=== PATIENT | female | born 1940 | race Caucasian/White ===

== ENCOUNTER → 2016-06-24 | Outpatient (REF) | payer MEDICARE, OTHER ==
[2016-06-24 19:21] LABS: ALBUMIN 3.6 GM/DL (3.2-5.2); ALBUMIN/GLOBULIN RATIO 1.13 (1.00-1.93); ALKALINE PHOSPHATASE 82 U/L (45-117); ALT/SGPT 21 U/L (12-78); ANION GAP 11 MEQ/L (8-16); AST/SGOT 19 U/L (15-37); BILIRUBIN,TOTAL 0.5 MG/DL (0.2-1.0); BLOOD UREA NITROGEN 14 MG/DL (7-18); CALCIUM LEVEL 8.9 MG/DL (8.8-10.2); CARBON DIOXIDE LEVEL 28 MEQ/L (21-32); CHLORIDE LEVEL 104 MEQ/L (98-107); CHOLESTEROL LEVEL 214 MG/DL (<200); CREATININE FOR GFR 0.71 MG/DL (0.55-1.02); GLOMERULAR FILTRATION RATE > 60.0 (>39); GLUCOSE, FASTING 101 MG/DL (83-110); POTASSIUM SERUM 4.4 MEQ/L (3.5-5.1); SODIUM LEVEL 143 MEQ/L (136-145); THYROXINE (T4) 7.9 UG/DL (4.5-12.0); TOTAL PROTEIN 6.8 GM/DL (6.4-8.2); TRIGLYCERIDES LEVEL 146 MG/DL (<150)
== END ==
LOC: M SFHCCLAY 11:02
PROVIDERS: ATTEND Family Medicine
DX: I10 Essential (primary) hypertension (principal); R53.83 Other fatigue; E78.5 Hyperlipidemia, unspecified
CPT/HCPCS: 80053; 80061; 84436; 84443; 84480; G0463

== ENCOUNTER → 2017-03-21 | Outpatient (REF) | payer MEDICARE, OTHER ==
[2017-03-21 11:27] LABS: BASO % 0.3 % (0.0-1.0); EOS # 0.1 10^3/uL (0.0-0.50); EOS % 2.1 % (0.0-3.0); LYMPH % 34.3 % (24.0-44.0); MEAN CORPUSCULAR HEMOGLOBIN 32.7 pg (27.0-33.0); MEAN CORPUSCULAR HGB CONC 32.8 g/dl (32.0-36.5); MEAN CORPUSCULAR VOLUME 99.8 fl (80.0-96.0); MONO # 0.5 10^3/uL (0.0-0.8); MONO % 8.6 % (0.0-5.0); NEUTROPHILS # 3.1 10^3/uL (1.8-7.7); NEUTROPHILS % 54.7 % (36.0-66.0); PLATELET COUNT, AUTOMATED 191 10^3/uL (150-450); RED CELL DISTRIBUTION WIDTH 12.5 % (11.5-14.5); WHITE BLOOD COUNT 5.7 10^3/uL (4.0-10.0)
[2017-03-21 11:56] LABS: THYROXINE (T4) 9.4 UG/DL (4.5-12.0)
== END ==
LOC: M SFHCCLAY 09:21
PROVIDERS: ATTEND Family Medicine
DX: I10 Essential (primary) hypertension (principal); R53.83 Other fatigue; E78.5 Hyperlipidemia, unspecified; G47.419 Narcolepsy without cataplexy; G47.33 Obstructive sleep apnea (adult) (pediatric); M19.90 Unspecified osteoarthritis, unspecified site; E66.01 Morbid (severe) obesity due to excess calories; Z68.41 Body mass index [BMI] 40.0-44.9, adult; Z79.82 Long term (current) use of aspirin; Z79.899 Other long term (current) drug therapy

== ENCOUNTER → 2017-11-03 | Outpatient (REF) | payer MEDICARE, OTHER ==
[2017-11-03 17:10] LABS: ALBUMIN 3.6 GM/DL (3.2-5.2); ALBUMIN/GLOBULIN RATIO 1.03 (1.00-1.93); ALKALINE PHOSPHATASE 124 U/L (45-117); ALT/SGPT 24 U/L (12-78); ANION GAP 9 MEQ/L (8-16); AST/SGOT 17 U/L (7-37); BILIRUBIN,TOTAL 0.6 MG/DL (0.2-1.0); BLOOD UREA NITROGEN 16 MG/DL (7-18); CARBON DIOXIDE LEVEL 30 MEQ/L (21-32); CHLORIDE LEVEL 103 MEQ/L (98-107); CHOLESTEROL LEVEL 222 MG/DL (<200); CHOLESTEROL RISK RATIO 4.111 (<5); CREATININE FOR GFR 0.76 MG/DL (0.55-1.30); GLOMERULAR FILTRATION RATE > 60.0 (>39); GLUCOSE, FASTING 102 MG/DL (70-100); HDL CHOLESTEROL 54 MG/DL (>40); LDL CHOLESTEROL 141.8 MG/DL (<100); NON-HDL-C 168 MG/DL; POTASSIUM SERUM 4.2 MEQ/L (3.5-5.1); SODIUM LEVEL 142 MEQ/L (136-145); TOTAL PROTEIN 7.1 GM/DL (6.4-8.2); TRIGLYCERIDES LEVEL 131 MG/DL (<150)
[2017-11-03 18:48] LABS: ESTIMATED AVERAGE GLUCOSE 131 MG/DL (60-110); HEMOGLOBIN A1c 6.2 %
[2017-11-05 14:27] LABS: Lyme Disease IgG/IgM Antibodie <0.91 ISR (0.00-0.90); Lyme Disease IgM Ab Quantitati <0.80 index (0.00-0.79)
== END ==
LOC: M SFHCCLAY 09:53
DX: E78.5 Hyperlipidemia, unspecified (principal); W57.XXXA Bitten or stung by nonvenomous insect and other nonvenomous arthropods, initial encounter; R73.01 Impaired fasting glucose; Y92.9 Unspecified place or not applicable; Z23 Encounter for immunization
CPT/HCPCS: 80053

== ENCOUNTER 2017-12-08 08:34 | Day surgery (SDC) | payer MEDICARE, OTHER ==
[~2017-12-08 08:34] MED LIST: NS 1,000 ML IV
[2017-12-08] MEDS ORDERED: LIDOCAINE 2% INJ 100 MG/5 ML SDV (FOR ANES.) As Ordered (10:21)
[2017-12-08] MEDS ORDERED: PROPOFOL 200 MG/20 ML VIAL As Ordered ×2 (10:21→10:39)
== END 2017-12-08 11:36 | disposition home or self-care (01) ==
LOC: M OPP 08:34
DX: K44.9 Diaphragmatic hernia without obstruction or gangrene (principal); K22.8 Other specified diseases of esophagus; R13.10 Dysphagia, unspecified; R07.89 Other chest pain; I10 Essential (primary) hypertension; E78.00 Pure hypercholesterolemia, unspecified; F32.9 Major depressive disorder, single episode, unspecified; K21.9 Gastro-esophageal reflux disease without esophagitis; E03.9 Hypothyroidism, unspecified; M12.9 Arthropathy, unspecified; K82.9 Disease of gallbladder, unspecified; G47.30 Sleep apnea, unspecified; R39.15 Urgency of urination; N81.10 Cystocele, unspecified; N81.6 Rectocele; Z79.899 Other long term (current) drug therapy; Z79.82 Long term (current) use of aspirin; J30.2 Other seasonal allergic rhinitis; Z78.0 Asymptomatic menopausal state; Z85.831 Personal history of malignant neoplasm of soft tissue
CPT/HCPCS: 43249

== ENCOUNTER → 2018-03-24 | Outpatient (REF) | payer MEDICARE, OTHER ==
[~2018-03-24] MED LIST changes: +ADVI200T PO; +AZEL0.055; +BIMA01SOL OU; +FIBE625T4 PO; +FLUTISP; +LOSA50TA88 PO; +MAGN400T2 PO; +MULT1TAB10 PO; +NEXI40CA PO; -NS 1,000 ML IV; +OPTI0.5D5 OU; +PATENOL OU; +PHEN-239 PO; +PRAV40TA2 PO; +VITATAB73 PO; +[UNRECOGNIZED DRUG - CODE] PO
[2018-03-24 17:54] LABS: BASO % 0.5 % (0.0-1.0); EOS # 0.1 10^3/uL (0.0-0.50); EOS % 1.7 % (0.0-3.0); HEMATOCRIT 42.7 % (36.0-47.0); LYMPH % 35.3 % (24.0-44.0); MEAN CORPUSCULAR HEMOGLOBIN 32.2 pg (27.0-33.0); MEAN CORPUSCULAR HGB CONC 32.8 g/dl (32.0-36.5); MEAN CORPUSCULAR VOLUME 98.2 fl (80.0-96.0); MONO # 0.6 10^3/uL (0.0-0.8); MONO % 10.7 % (0.0-5.0); NEUTROPHILS % 51.6 % (36.0-66.0); PLATELET COUNT, AUTOMATED 205 10^3/uL (150-450); RED BLOOD COUNT 4.35 10^6/uL (4.00-5.40); WHITE BLOOD COUNT 5.7 10^3/uL (4.0-10.0)
[2018-03-24 18:04] LABS: ALBUMIN 3.7 GM/DL (3.2-5.2); ALT/SGPT 24 U/L (12-78); BILIRUBIN,TOTAL 0.5 MG/DL (0.2-1.0); BLOOD UREA NITROGEN 19 MG/DL (7-18); CALCIUM LEVEL 8.9 MG/DL (8.8-10.2); CARBON DIOXIDE LEVEL 30 MEQ/L (21-32); CHLORIDE LEVEL 106 MEQ/L (98-107); CREATININE FOR GFR 0.85 MG/DL (0.55-1.30); GLOMERULAR FILTRATION RATE > 60.0 (>39); GLUCOSE, FASTING 102 MG/DL (70-100); POTASSIUM SERUM 4.3 MEQ/L (3.5-5.1); SODIUM LEVEL 142 MEQ/L (136-145); TOTAL PROTEIN 6.9 GM/DL (6.4-8.2)
[2018-03-24 20:34] LABS: HEMOGLOBIN A1c 6.4 %
== END ==
LOC: M SFHCCLAY 10:17
PROVIDERS: ATTEND Family Medicine
DX: I10 Essential (primary) hypertension (principal); R73.01 Impaired fasting glucose
CPT/HCPCS: 80053; 83036; 85025; G0463

== ENCOUNTER 2018-11-04 07:53 | Day surgery (SDC) | payer MEDICARE, OTHER ==
[~2018-11-04] VITALS: Ht 154.9 cm; Wt 89.7 kg
[~2018-11-04 07:53] MED LIST changes: +CALC625T13 PO; +CO Q10CA PO; -FIBE625T4 PO; +LIDOCAINE 2% INJ 100 MG/5 ML SDV (FOR ANES.) As Ordered ONE; +MULTTAB86 PO; +NS 1,000 ML IV ONE; +PROPOFOL 200 MG/20 ML VIAL As Ordered ONE
--- NOTE | 2018-11-04 09:29 | ROOR ---
Patient Name: Zaida Vaca Procedure Date: 11/04/2018 9:03 AM Date of : 1940 Age: 78 Room: [facility] Gender: Female Note Status: Finalized Procedure: Total Colonoscopy to Cecum + Cold Snare Polypectomy Indications: High risk colon cancer surveillance: Personal history of colonic polyps, High risk colon cancer surveillance: Personal history of adenoma with villous component, Last colonoscopy: 2015 Providers: Loco Demarco MD Referring MD: JENI VALVERDE DO Requesting Provider: Medicines: Monitored Anesthesia Care Complications: No immediate complications. Procedure: Pre-Anesthesia Assessment: - The heart rate, respiratory rate, oxygen saturations, blood pressure, adequacy of pulmonary ventilation, and response to care were monitored throughout the procedure. The Colonoscope was introduced through the anus and advanced to the cecum, identified by appendiceal orifice and ileocecal valve. The colonoscopy was performed without difficulty. The patient tolerated the procedure well. The quality of the bowel preparation was excellent. Findings: The perianal and digital rectal examinations were normal. Non-bleeding internal hemorrhoids were found during retroflexion. The hemorrhoids were small and Grade I (internal hemorrhoids that do not prolapse). A small polyp was found at 20 cm proximal to the anus. The polyp was sessile. The polyp was removed with a cold snare. Resection and retrieval were complete. Multiple small and large-mouthed diverticula were found in the recto-sigmoid colon, sigmoid colon and descending colon. The exam was otherwise without abnormality on direct and retroflexion views. Impression: - Non-bleeding internal hemorrhoids. - One small polyp at 20 cm proximal to the anus, removed with a cold snare. Resected and retrieved. - Diverticulosis in the recto-sigmoid colon, in the sigmoid colon and in the descending colon. - The examination was otherwise normal on direct and retroflexion views. - The exam was otherwise normal to the cecum. Recommendation: - Patient has a contact number available for emergencies. The signs and symptoms of potential delayed complications were discussed with the patient. Return to normal activities tomorrow. Written discharge instructions were provided to the patient. - High fiber diet. - Discharge patient to home. - Continue present medications. - Await pathology results. - Telephone GI clinic for pathology results in 1 week. - Repeat colonoscopy for symptoms only. - Return to referring physician. - The findings and recommendations were discussed with the patient's family. Loco Demarco MD Loco Demarco MD 11/04/2018 9:29:18 AM Electronically signed by Loco Demarco MD Number of Addenda: 0 Note Initiated On: 11/04/2018 9:03 AM Estimated Blood Loss: Estimated blood loss: none.
[2018-11-04 09:53] VITALS: BP 145/67
== END 2018-11-04 09:56 | disposition home or self-care (01) ==
LOC: M OPP 07:53
PROVIDERS: ATTEND Internal Medicine Gastroenterology
DX: Z12.11 Encounter for screening for malignant neoplasm of colon (principal); Z86.010 Personal history of colon polyps; K64.0 First degree hemorrhoids; K57.30 Diverticulosis of large intestine without perforation or abscess without bleeding; Z79.82 Long term (current) use of aspirin; Z79.899 Other long term (current) drug therapy

== ENCOUNTER → 2018-11-24 | Outpatient (REF) | payer MEDICARE, OTHER ==
[~2018-11-24] MED LIST changes: -LIDOCAINE 2% INJ 100 MG/5 ML SDV (FOR ANES.) As Ordered ONE; -NS 1,000 ML IV ONE; -PROPOFOL 200 MG/20 ML VIAL As Ordered ONE
[2018-11-24 17:09] LABS: ALBUMIN 3.6 GM/DL (3.2-5.2); ALT/SGPT 26 U/L (12-78); BILIRUBIN,TOTAL 0.5 MG/DL (0.2-1.0); BLOOD UREA NITROGEN 20 MG/DL (7-18); CALCIUM LEVEL 9.3 MG/DL (8.8-10.2); CARBON DIOXIDE LEVEL 26 MEQ/L (21-32); CHLORIDE LEVEL 105 MEQ/L (98-107); CHOLESTEROL LEVEL 255 MG/DL (<200); CHOLESTEROL RISK RATIO 4.322 (<5); CREATININE FOR GFR 0.75 MG/DL (0.55-1.30); GLOMERULAR FILTRATION RATE > 60.0 (>39); GLUCOSE, FASTING 100 MG/DL (70-100); HDL CHOLESTEROL 59 MG/DL (>40); LDL CHOLESTEROL 164 MG/DL (<100); MAGNESIUM LEVEL 2.2 MG/DL (1.8-2.4); NON-HDL-C 196 MG/DL; POTASSIUM SERUM 4.6 MEQ/L (3.5-5.1); SODIUM LEVEL 140 MEQ/L (136-145); TOTAL PROTEIN 6.9 GM/DL (6.4-8.2); TRIGLYCERIDES LEVEL 161 MG/DL (<150)
[2018-11-24 18:05] LABS: HEMOGLOBIN A1c 6.5 %
== END ==
LOC: M SFHCCLAY 11:01
PROVIDERS: ATTEND Family Medicine
DX: I10 Essential (primary) hypertension (principal); E78.5 Hyperlipidemia, unspecified; R73.01 Impaired fasting glucose

== ENCOUNTER → 2018-11-24 | Outpatient (CLI) | payer MEDICARE, BC, OTHER ==
--- NOTE | 2018-11-24 18:37 | REP ---
REASON: Pain. No trauma. PRIORS: None. There is tricompartmental marginal osteophytosis. There is advanced lateral compartmental narrowing with subchondral sclerosis. There is patellofemoral joint space narrowing. There is no acute fracture. IMPRESSION; Advanced degenerative changes as described above. Electronically Signed by Ottoniel Yusuf DO 11/25/2018 09:32 A
== END ==
LOC: M CLY 11:31
PROVIDERS: ATTEND Family Medicine
DX: M17.12 Unilateral primary osteoarthritis, left knee (principal); M25.762 Osteophyte, left knee; M25.562 Pain in left knee; I10 Essential (primary) hypertension; R73.01 Impaired fasting glucose
CPT/HCPCS: 73564; 80053; 80061; 83036; 83735; 84436; 84443; G0463

== ENCOUNTER → 2019-02-17 | Outpatient (CLI) | payer MEDICARE, BC, OTHER ==
[~2019-02-17] MED LIST changes: +CHOL50003 PO; +NON-325T5 PO; +OMEP40CA97 PO; +VOLT1GEL15 TD
--- NOTE | 2019-02-17 09:06 | REP ---
CHEST X-RAY: Two views. HISTORY: Left knee arthritis. Hypertension. COMPARISON CHEST X-RAY: March 01, 2016. FINDINGS: There are surgical clips in right upper quadrant of the abdomen consistent with post cholecystectomy. There are surgical anchors in the humeral head on the right. Vascular calcification is seen in the distribution of the carotid arteries in the neck bilaterally. The lungs are well inflated and clear. Pleural angles are sharp. Heart is not felt to be enlarged. The aorta is calcific. There are mild degenerative changes in the thoracic spine. Pulmonary vasculature is not increased. There is evidence of hiatal hernia at the level of the GE junction. IMPRESSION: No active cardiopulmonary disease. Question hiatal hernia. Electronically Signed by Mikael Phoenix MD 02/17/2019 10:23 A
[2019-02-17 09:27] LABS: HEMATOCRIT 41.7 % (36.0-47.0); HEMOGLOBIN 13.5 g/dl (12.0-15.5); MEAN CORPUSCULAR HEMOGLOBIN 32.3 pg (27.0-33.0); MEAN CORPUSCULAR HGB CONC 32.4 g/dl (32.0-36.5); MEAN CORPUSCULAR VOLUME 99.8 fl (80.0-96.0); PLATELET COUNT, AUTOMATED 182 10^3/uL (150-450); RED BLOOD COUNT 4.18 10^6/uL (4.00-5.40); WHITE BLOOD COUNT 5.7 10^3/uL (4.0-10.0)
[2019-02-17 09:39] LABS: INR 1.04; PROTHROMBIN TIME 13.3 SECONDS (11.8-14.0)
[2019-02-17 09:54] LABS: ALBUMIN 3.6 GM/DL (3.2-5.2); ALT/SGPT 24 U/L (12-78); BILIRUBIN,TOTAL 0.5 MG/DL (0.2-1.0); BLOOD UREA NITROGEN 12 MG/DL (7-18); CALCIUM LEVEL 9.3 MG/DL (8.8-10.2); CARBON DIOXIDE LEVEL 31 MEQ/L (21-32); CHLORIDE LEVEL 105 MEQ/L (98-107); CREATININE FOR GFR 0.75 MG/DL (0.55-1.30); GLOMERULAR FILTRATION RATE > 60.0 (>39); GLUCOSE, FASTING 78 MG/DL (70-100); POTASSIUM SERUM 3.9 MEQ/L (3.5-5.1); SODIUM LEVEL 140 MEQ/L (136-145); TOTAL PROTEIN 6.7 GM/DL (6.4-8.2)
[2019-02-17 11:04] LABS: ERYTHROCYTE SEDIMENTATION RATE 15 mm/hr (0-30)
--- NOTE | 2019-02-18 08:30 | ECGEPIP ---
[facility] Test Date: 2019-02-17 Pat Name: CATIA BUCKLEY Department: Room: - Gender: Female Application Development Director: BILL : 1940 Requested By: Raffy Patricia Order Number: [id number] Reading MD: Slava Singh Measurements Intervals [place] Rate: 73 P: 53 VA: 171 QRS: 36 QRSD: 84 T: 37 QT: 375 QTc: 416 Interpretive Statements Normal sinus rhythm Generally low QRS complex voltages Delayed anterior R wave progression Nonspecific ST-T wave abnormalities No significant change when compared to prior tracing of 03/01/2016 Electronically Signed on 02-18-2019 8:30:01 EST by Slava Singh
== END ==
LOC: M LAB 08:06
PROVIDERS: ATTEND Orthopaedic Surgery
DX: Z01.810 Encounter for preprocedural cardiovascular examination (principal); M17.12 Unilateral primary osteoarthritis, left knee; M51.34 Other intervertebral disc degeneration, thoracic region; Z90.49 Acquired absence of other specified parts of digestive tract; I70.0 Atherosclerosis of aorta

== ENCOUNTER 2019-03-05 09:30 | Inpatient (IN) | payer MEDICARE, OTHER ==
[~2019-03-05] VITALS: Ht 154.9 cm; Wt 90.7 kg
[~2019-03-05 09:30] MED LIST changes: +LIDOCAINE 1% MDV 20ML VIAL SQ PRN; +LR 1,000 ML IV SCH; -VOLT1GEL15 TD; +VOLT1GEL15 TOP; +ceFAZolin SOD 2 GM in IV 1 EA IV ONE
[2019-03-05] MEDS ORDERED: ONDANSETRON 4MG/2ML VIAL (J2405) As Ordered ONE (11:21)
[2019-03-05] MEDS ORDERED: dexameTHASONE 4 MG/ML 1ML VIAL (J1100) As Ordered ONE (11:21)
[2019-03-05] MEDS ORDERED: fentaNYL 100 MCG/2 ML INJECTION (J3010) As Ordered ONE ×2 (11:22→12:39)
[2019-03-05] MEDS ORDERED: PROPOFOL 500 MG/50 ML VIAL As Ordered ONE ×2 (11:22→15:42)
[2019-03-05] MEDS ORDERED: MIDAZOLAM INJ 2 MG/2 ML VIAL (J2250) As Ordered ONE (12:39)
--- NOTE | 2019-03-05 12:40 | CR.PDOC ---
General Date of Consultation: Mar 05, 2019 Consultation REASON FOR CONSULTATION/CHIEF COMPLAINT: Medical management. HISTORY OF PRESENT ILLNESS: Patient is a 78-year-old female with past medical history of hypothyroidism, hyperlipidemia, OA, HTN, NICHOLAS dependent on BiPAP, GERD, glaucoma, presenting with left knee pain, is status post left total knee arthroplasty, postop day #0 (03/05/19) by Dr. Guidry. Hospitalist consulted for medical management. Patient reports years of left knee pain, which she suspects from skiing. Has a history of left knee arthroscopy 5-6 years ago, and subsequent series of hyaluronic acid injections. She is otherwise independent, lives at home by herself. She denies any fevers, chills, headaches, changes in vision, chest pain, shortness of breath, nausea, vomiting, abdominal pain, issues with voiding or stooling. ROS: 10 point review of systems are negative except per above. PMH: See above. PSH: Right rotator cuff repair, section, TNA, benign tongue lesion excision, cholecystectomy, left knee arthroscopy, rectocele repair, right lateral cataract repair. Family history: Family history of pneumonia, father passed at 88 years old due to [place] Social history: Denies smoking, alcohol, illicits. Lives at home independently. Allergies: NKDA Medications: Reviewed PHYSICAL EXAMINATION: VITAL SIGNS: Please see below. GENERAL APPEARANCE: Pleasant female in no acute distress, obese with a BMI of 37. HEENT:. Normocephalic, atraumatic, Mallampati score 4. RESPIRATORY: Clear to auscultation bilaterally. CARDIOVASCULAR:. S1, S2. ABDOMEN:, Positive bowel sounds, soft, nontender to palpation. EXTREMITIES:. No edema bilaterally, no bruising. NEUROLOGICAL: Able to follow injections, EOMI, PERRLA. PSYCHIATRIC:. Has capacity, appropriate affect. LABORATORY DATA: Please see below. ASSESSMENT/PLAN: Patient is a 78-year-old female with past medical history of hypothyroidism, hyperlipidemia, OA, HTN, NICHOLAS dependent on BiPAP, GERD, glaucoma, presenting with left knee pain, plan for left total knee arthroplasty, (03/05/19) by Dr. Guidry. #(03/05/19) L total knee arthroscopy: Deferred to primary team along with pain management. #HTN: Continue home medications: Losartan 50 mg daily, with parameters #HLD: Continue home pravastatin 40 mg daily at bedtime #Glaucoma: Continue home ophthalmic gtt. #GERD: Continue home omeprazole 40 mg daily #NICHOLAS: Continue home BiPAP, hold Armodafinil 50mg QD DVT ppx: per primary team Thank you for the consult. Vital Signs/I&O Vital Signs Date Time Temp Pulse Resp B/P (MAP) Pulse Ox O2 Delivery O2 Flow Rate FiO2 03/05/19 09:57 96.7 78 18 172/73 (106) 97 Room Air Allergies Coded Allergies: squash (Verified Adverse Reaction, Mild, ZUCCHINI - DIARRHEA, 02/19/19) Home Medications Scheduled Armodafinil (Nuvigil) 50 Mg Tab, 150 MG PO DAILY, (Reported) Azelastine HCl (Azelastine HCl) 0.15 % Spr, 0.15 % NA PRN, (Reported) Bimatoprost (Lumigan) 50 Drop/2.5 Ml Caridad, 1 DROP OU QHS, (Reported) Calcium Polycarbophil (Fiber Laxative) 625 Mg Tab, 625 MG PO PRN, (Reported) Carboxymethylcellulos/Glycerin (Refresh Optive Eye Drops) 1 Derek Derek, 1 DROP OU DAILY, (Reported) Cholecalciferol (Vitamin D3) (Vitamin D3) 5,000 Unit Capsule, 5,000 UNIT PO 2XW, (Reported) Diclofenac Sodium (Voltaren) 100 Gm Gel..gram., 1 % TD BID, (Reported) Fluticasone Propionate (Fluticasone Propionate) 50 Mcg/Act Spr, 1 SPRAY NA PRN, #1 (Reported) Losartan Potassium (Losartan Potassium) 50 Mg Tab, 50 MG PO Q2D, (Reported) Magnesium Oxide (Magnesium Oxide) 400 Mg Tab, 400 MG PO Q2D, (Reported) Omeprazole (Omeprazole) 40 Mg Capsule.dr, 40 MG PO DAILY, (Reported) Pravastatin Sodium (Pravastatin Sodium) 40 Mg Tab, 40 MG PO QHS, (Reported) Vitamin B Complex (Vitamin B Complex) 1 Tab Tab, 1 TAB PO DAILY, (Reported) Scheduled PRN Acetaminophen (Acetaminophen) 325 Mg Tablet, 650 MG PO PRN PRN for PAIN, (Reported) Ibuprofen (Advil) 200 Mg Tab, 200 MG PO PRN PRN for PAIN, (Reported) DEZ DE LOS SANTOS MD Mar 05, 2019 12:40
[2019-03-05] MEDS ORDERED: MIDAZOLAM INJ 2 MG/2 ML VIAL (J2250) IV ONE (13:30)
[2019-03-05] MEDS ORDERED: fentaNYL 100 MCG/2 ML INJECTION (J3010) IV ONE (13:30)
[2019-03-05] MEDS ORDERED: TRANEXAMIC ACID 100 MG/ML 10ML VIAL As Ordered ONE (14:21)
[2019-03-05] MEDS ORDERED: BUPIVACAINE LIPOSOME/PF 1.3% 20ML VIAL (13.3MG/ML)(EXPAREL)(C9290 PER1MG) As Ordered ONE (14:22)
[2019-03-05] MEDS ORDERED: EPINEPHrine INJ 1 MG/ML 1ML AMP As Ordered ONE (14:22)
[2019-03-05] MEDS ORDERED: ceFAZolin 1GM INJ (J0690 PER 500MG) As Ordered ONE (14:22)
[2019-03-05] MEDS ORDERED: BUPIVACAINE HCL 0.25% 10 ML VIAL As Ordered ONE (14:40)
[2019-03-05] MEDS ORDERED: PHENYLephrine HCL 500 MCG/5 ML (100MCG/ML) SYRINGE (J2370) As Ordered ONE (14:57)
[2019-03-05] MEDS ORDERED: ePHEDrine SULFATE 25 MG/5 ML(5MG/ML) SYRINGE As Ordered ONE (14:58)
[2019-03-05] MEDS ORDERED: CALCIUM CHLORIDE 10% 1 GM/10 ML SYR As Ordered ONE (14:58)
[2019-03-05] MEDS ORDERED: BUPIVACAINE HCL 0.5% 30 ML VIAL As Ordered ONE (14:59)
[2019-03-05] MEDS ORDERED: ONDANSETRON 4MG/2ML VIAL (J2405) IV PRN (17:15)
[2019-03-05] MEDS ORDERED: FLEET ENEMA PR PRN (17:15)
[2019-03-05] MEDS ORDERED: ACETAMINOPHEN TAB 650MG DOSE (2X325MG) PO PRN (17:15)
[2019-03-05] MEDS ORDERED: NORCO, ANEXSIA 5/325MG TABLET (HYDROcodone/ACETAMINOPHEN) PO PRN (17:15)
[2019-03-05] MEDS ORDERED: fentaNYL 100 MCG/2 ML INJECTION (J3010) IV PRN (17:15)
[2019-03-05] MEDS ORDERED: LR 1,000 ML IV SCH ×2 (17:15)
[2019-03-05] MEDS ORDERED: HYDROMORPHONE HCL 0.5 MG/ 0.5 ML SYRINGE (J1170 PER 1) IV PRN ×2 (17:15)
[2019-03-05 17:55] VITALS: BP 132/75
[2019-03-05 18:30] VITALS: BP 138/71
--- NOTE | 2019-03-05 19:27 | REP ---
REASON FOR EXAM: Postoperative left knee status-post total knee replacement. The femoral and tibial components of the prosthetic device are well seated and well approximated. The alignment is near anatomical. There is expected postoperative soft-tissue swelling. There is an anterior midline skin staple line in place. IMPRESSION:Status-post total knee replacement. Electronically Signed by Ottoniel Yusuf DO 03/06/2019 09:20 A
[2019-03-05 19:31] VITALS: BP 145/62
[2019-03-05] MEDS ORDERED: FLUTICASONE PROP 0.05% NASAL SPRAY 16 GM (FLONASE) PRN (20:00)
[2019-03-05] MEDS ORDERED: dexameTHASONE 10 MG/1 ML VIAL PRES.FREE (J1100) ONE (20:20)
[2019-03-05] MEDS ORDERED: EPINEPHrine INJ 1 MG/ML 1ML AMP ONE (20:20)
[2019-03-05] MEDS ORDERED: ROPIvacaine 0.5% 30 ML INJECTION (J2795 PER 1MG) ONE (20:20)
[2019-03-05 20:30] VITALS: BP 141/61
[2019-03-05] MEDS: LOSARTAN 50 MG TAB PO SCH (20:51)
[2019-03-05] MEDS: PRAVASTATIN 20 MG TAB PO SCH (20:51)
[2019-03-05] MEDS: ceFAZolin SOD 2 GM in IV 1 EA IV SCH (20:52)
[2019-03-05 21:30] VITALS: BP 133/59
[2019-03-05 22:30] VITALS: BP 144/63
[2019-03-06] VITALS (7 sets, daily range): BP systolic 118–132; BP diastolic 55–61
[2019-03-06] MEDS: ceFAZolin SOD 2 GM in IV 1 EA IV SCH ×2 (02:12→08:52)
[2019-03-06] MEDS ORDERED: NORCO, ANEXSIA 5/325MG TABLET (HYDROcodone/ACETAMINOPHEN) PO PRN (06:15)
[2019-03-06] MEDS ORDERED: XARE10TA PO (06:48)
[2019-03-06] MEDS ORDERED: PERC5TAB12 PO (06:48)
[2019-03-06 06:54] LABS: HEMATOCRIT 35.4 % (36.0-47.0); HEMOGLOBIN 11.6 g/dl (12.0-15.5); MEAN CORPUSCULAR HEMOGLOBIN 32.5 pg (27.0-33.0); MEAN CORPUSCULAR HGB CONC 32.8 g/dl (32.0-36.5); MEAN CORPUSCULAR VOLUME 99.2 fl (80.0-96.0); PLATELET COUNT, AUTOMATED 143 10^3/uL (150-450); RED BLOOD COUNT 3.57 10^6/uL (4.00-5.40); WHITE BLOOD COUNT 10.2 10^3/uL (4.0-10.0)
[2019-03-06 07:12] LABS: INR 1.09; PROTHROMBIN TIME 13.9 SECONDS (11.8-14.0)
[2019-03-06 07:16] LABS: BLOOD UREA NITROGEN 19 MG/DL (7-18); CALCIUM LEVEL 9.2 MG/DL (8.8-10.2); CARBON DIOXIDE LEVEL 25 MEQ/L (21-32); CHLORIDE LEVEL 108 MEQ/L (98-107); CREATININE FOR GFR 0.77 MG/DL (0.55-1.30); GLOMERULAR FILTRATION RATE > 60.0 (>39); GLUCOSE, FASTING 147 MG/DL (70-100); POTASSIUM SERUM 4.2 MEQ/L (3.5-5.1); SODIUM LEVEL 138 MEQ/L (136-145)
--- NOTE | 2019-03-06 07:24 | IPNPDOC ---
Date Seen The patient was seen on 03/06/19. Progress Note SUBJECTIVE: Had no overnight events, tolerated procedure, blood pressure control. Positive flatus, no BM. OBJECTIVE PHYSICAL EXAMINATION: VITAL SIGNS: Please see below. GENERAL APPEARANCE: Pleasant female in no acute distress HEENT:. Normocephalic, atraumatic, Mallampati score 4. RESPIRATORY: Clear to auscultation bilaterally. CARDIOVASCULAR:. S1, S2. ABDOMEN:, Positive bowel sounds, soft, nontender to palpation. EXTREMITIES:. No edema bilaterally, no bruising. NEUROLOGICAL: Able to follow injections, EOMI, PERRLA. PSYCHIATRIC:. Has capacity, appropriate affect. LABORATORY DATA: Please see below. ASSESSMENT/PLAN: Patient is a 78-year-old female with past medical history of hypothyroidism, hyperlipidemia, OA, HTN, NICHOLAS dependent on BiPAP, GERD, glaucoma, presenting with left knee pain, a/p left total knee arthroplasty, POD#1 (03/05/19) by Dr. Guidry. #POD#1 (03/05/19) s/p L total knee arthroscopy: Deferred to primary team along with pain management. #HTN: Continue home medications: Losartan 50 mg daily, with parameters #HLD: Continue home pravastatin 40 mg daily at bedtime #Glaucoma: Continue home ophthalmic gtt. #GERD: Continue home omeprazole 40 mg daily #NICHOLAS: Continue home BiPAP, hold Armodafinil 50mg QD DVT ppx: per primary team Dispo per primary team VS, I&O, 24H, Fishbone Vital Signs/I&O Vital Signs Date Time Temp Pulse Resp B/P (MAP) Pulse Ox O2 Delivery O2 Flow Rate FiO2 03/06/19 06:00 97.8 75 18 118/55 (76) 97 Room Air 03/05/19 14:30 2 I&O- Last 24 Hours up to 6 AM 03/06/19 06:00 Intake Total 4865 ml Output Total 870 ml Balance 3995 ml Laboratory Data 24H LABS Laboratory Tests 2 03/06/19 06:39: Nucleated Red Blood Cells % (auto) 0.0, Prothrombin Time 13.9, Prothromb Time International Ratio 1.09, Anion Gap 5L, Glomerular Filtration Rate > 60.0, Calcium Level 9.2 CBC/BMP Laboratory Tests 03/06/19 06:39 DEZ DE LOS SANTOS MD Mar 06, 2019 07:24
[2019-03-06] MEDS: OMEPRAZOLE 20 MG CAP PO SCH (08:52)
[2019-03-06] MEDS: MIRALAX *UNIT DOSE* 17GM PACKET PO SCH (08:52)
[2019-03-06] MEDS: MOM 30ML SUSPENSION UDC PO SCH (08:52)
[2019-03-06] MEDS: NORCO, ANEXSIA 5/325MG TABLET (HYDROcodone/ACETAMINOPHEN) PO PRN ×4 (08:53→21:32)
[2019-03-06] MEDS ORDERED: RIVAROXABAN 10 MG TAB (XARELTO) PO SCH (18:00)
[2019-03-06] MEDS: PRAVASTATIN 20 MG TAB PO SCH (20:15)
[2019-03-06] MEDS: LOSARTAN 50 MG TAB PO SCH (20:15)
[2019-03-07] MEDS: NORCO, ANEXSIA 5/325MG TABLET (HYDROcodone/ACETAMINOPHEN) PO PRN ×2 (02:16→08:57)
[2019-03-07 06:00] VITALS: BP 110/51
[2019-03-07 06:05] LABS: HEMATOCRIT 33.1 % (36.0-47.0); HEMOGLOBIN 10.7 g/dl (12.0-15.5); MEAN CORPUSCULAR HEMOGLOBIN 32.7 pg (27.0-33.0); MEAN CORPUSCULAR HGB CONC 32.3 g/dl (32.0-36.5); MEAN CORPUSCULAR VOLUME 101.2 fl (80.0-96.0); PLATELET COUNT, AUTOMATED 155 10^3/uL (150-450); RED BLOOD COUNT 3.27 10^6/uL (4.00-5.40); WHITE BLOOD COUNT 11.1 10^3/uL (4.0-10.0)
[2019-03-07 06:38] LABS: BLOOD UREA NITROGEN 29 MG/DL (7-18); CALCIUM LEVEL 8.5 MG/DL (8.8-10.2); CARBON DIOXIDE LEVEL 28 MEQ/L (21-32); CHLORIDE LEVEL 108 MEQ/L (98-107); CREATININE FOR GFR 0.86 MG/DL (0.55-1.30); GLOMERULAR FILTRATION RATE > 60.0 (>39); GLUCOSE, FASTING 109 MG/DL (70-100); POTASSIUM SERUM 4.2 MEQ/L (3.5-5.1); SODIUM LEVEL 142 MEQ/L (136-145)
--- NOTE | 2019-03-07 08:06 | IPNPDOC ---
Date Seen The patient was seen on 03/07/19. Progress Note SUBJECTIVE: Had no overnight events, tolerated procedure, blood pressure control. Positive flatus, no BM. dc 03/07/19 per primary team. OBJECTIVE PHYSICAL EXAMINATION: VITAL SIGNS: Please see below. GENERAL APPEARANCE: Pleasant female in no acute distress HEENT:. Normocephalic, atraumatic, Mallampati score 4. RESPIRATORY: Clear to auscultation bilaterally. CARDIOVASCULAR:. S1, S2. ABDOMEN:, Positive bowel sounds, soft, nontender to palpation. EXTREMITIES:. No edema bilaterally, no bruising. NEUROLOGICAL: Able to follow injections, EOMI, PERRLA. PSYCHIATRIC:. Has capacity, appropriate affect. LABORATORY DATA: Please see below. ASSESSMENT/PLAN: Patient is a 78-year-old female with past medical history of hypothyroidism, hyperlipidemia, OA, HTN, NICHOLAS dependent on BiPAP, GERD, glaucoma, presenting with left knee pain, a/p left total knee arthroplasty, POD#2 (03/05/19) by Dr. Guidry. #POD#2 (03/05/19) s/p L total knee arthroscopy: Deferred to primary team along with pain management. #HTN: Continue home medications: Losartan 50 mg daily, with parameters #HLD: Continue home pravastatin 40 mg daily at bedtime #Glaucoma: Continue home ophthalmic gtt. #GERD: Continue home omeprazole 40 mg daily #NICHOLAS: Continue home BiPAP, hold Armodafinil 50mg QD during hospitalization DVT ppx: per primary team Dispo per primary team dc 03/07/19 VS, I&O, 24H, Fishbone Vital Signs/I&O Vital Signs Date Time Temp Pulse Resp B/P (MAP) Pulse Ox O2 Delivery O2 Flow Rate FiO2 03/07/19 06:00 96.0 80 20 110/51 (70) 90 Room Air 03/05/19 14:30 2 I&O- Last 24 Hours up to 6 AM 03/07/19 06:00 Intake Total 2700 ml Output Total 500 ml Balance 2200 ml Laboratory Data 24H LABS Laboratory Tests 2 03/07/19 05:41: Nucleated Red Blood Cells % (auto) 0.0, Anion Gap 6L, Glomerular Filtration Rate > 60.0, Calcium Level 8.5L CBC/BMP Laboratory Tests 03/07/19 05:41 DEZ DE LOS SANTOS MD Mar 07, 2019 08:06
[2019-03-07] MEDS: MOM 30ML SUSPENSION UDC PO SCH (08:55)
[2019-03-07] MEDS: MIRALAX *UNIT DOSE* 17GM PACKET PO SCH (08:55)
[2019-03-07] MEDS: OMEPRAZOLE 20 MG CAP PO SCH (08:57)
[2019-03-08] MEDS ORDERED: MAGNESIUM OXIDE 400 MG TAB (MAG-OX) PO SCH (09:00)
--- NOTE | 2019-03-08 17:15 | RO ---
DATE OF PROCEDURE: 03/05/2019 PREPROCEDURE DIAGNOSIS: Valgus, tricompartmental degenerative arthritis left knee. POSTPROCEDURE DIAGNOSIS: Valgus, tricompartmental degenerative arthritis left knee. PROCEDURE: Left total knee arthroplasty using a cruciate-retaining size 4 femoral component, cemented, with a size 4 tibial tray and a 6 mm rotating platform polyethylene insert and a 32 mm polyethylene button. All components were cemented. It was an Attune knee made by [employer]. SURGEON: Raffy Guidry SERVICE ASSOCIATE: Ms. Alondra Redding ANESTHESIA: Spinal with left femoral nerve block. COMPLICATIONS: None. ESTIMATED BLOOD LOSS: 20 mL. SPECIMENS: Joint surface. DESCRIPTION OF PROCEDURE: Antibiotics were given intravenously preoperatively, then successful left femoral nerve block and then spinal anesthetic was induced. Tourniquet placed on left upper thigh and not inflated. Left lower extremity carefully prepped and draped in the usual sterile fashion, elevated and after appropriate time-out, tourniquet was inflated and then a longitudinal incision was made for a medial parapatellar approach to the knee. Bovie cautery was used to coagulate crossing vessels. Medial parapatellar arthrotomy performed. Subperiosteal dissection around the proximal, medial and lateral tibial plateaus was performed, then the patella was everted and the knee flexed, anterior cruciate ligament (ACL) debrided, drill placed down the center of the femoral canal, intramedullary evangelina, the distal femoral cutting jig set at 5 degree valgus cut at 9 mm resection level for a left knee was introduced, pinned into position. Distal femoral cut performed. AP sizing jig measured for a size 4 femoral component. Three degrees of external rotation dialed in, the pins placed, 4-in-1 block applied. Then, the anterior and posterior chamfer cuts performed taking great care to protect the surrounding soft tissues. The sulcus osteotomy was performed using the jig. We then exposed the proximal tibia. I used the extramedullary alignment guide to estimate being parallel to the mechanical axis, referencing off the medial tibial condyle, as well as the lateral tibial condyle. We estimated 4 mm resection level medially and about the same laterally. The block was pinned into position, secondary check with the extramedullary evangelina confirmed that we appeared to be parallel to the mechanical axis. The proximal tibial osteotomy thus was performed. Lamina medication care manager was placed laterally, and we performed a completion medial meniscectomy and debridement of the posteromedial osteophytes. We then placed the lamina medication care manager medially and performed a completion lateral meniscectomy and debridement of the posterolateral osteophytes. Spacer block at 6 mm actually fit very nicely with good symmetry to varus/valgus stress testing both in flexion and in extension. I felt that would be the appropriate size. We exposed the proximal tibia, sized for a 4 tibial tray, which was pinned into position followed by the reamer and the broach. Then, the trial placed and the trial femoral component was placed. We brought the knee into extension, everted the patella and performed patellar osteotomy, sized for a 32 button. Lug holes were drilled, trial placed, and patellofemoral tracking was anatomic. We then drilled the lug holes for the femur, removed all of the trial components. We then placed Exparel in the subperiosteal tissues around the distal femur and the proximal tibia. Then, my guest services assistant, Ms. Alondra Redding, mixed the cement on the back table as I prepared the bony surfaces for cementing with a copious amount of pulsatile lavage irrigant solution. Ms. Alondra Redding was critical to the success of this difficult surgical intervention by helping with appropriate soft tissue retraction, helped to manipulate the knee, helped to mix the cement, helped to close the wound and prepare the patient amongst many other tasks to allow me to perform the operation smoothly, efficiently, and safely. We then dried all the bony surfaces and then cemented the tibial tray, removed excess cement, placed the polyethylene, and then cemented the femoral component, removed excess cement, brought the knee into extension, then everted the patella and cemented the patellar button and then removed all excess cement. We held the position in full extension until the cement hardened. As we were awaiting this, we copiously pulsatile lavage irrigated out the knee and then eventually placed tranexamic acid in the knee joint. Then, began closing the apex of the arthrotomy with two #1 PDS sutures, the medial parapatellar area was closed with a #1 PDS suture, then the capsule was closed with a running double-arm #1 Stratafix. The tourniquet was then released, and then we irrigated again, closed the deep subdermal tissues with interrupted #2-0 PDS sutures, skin was closed with rhys, covered by an Optifoam dry sterile bulky dressing. The patient was then transferred to the recovery room in stable condition. There were no intraoperative complications.
--- NOTE | 2019-03-11 19:56 | DSES ---
DATE OF ADMISSION: 03/05/2019 DATE OF DISCHARGE: 03/07/2019 ATTENDING PHYSICIAN: Dr. Harshad Guidry ADMISSION DIAGNOSIS: Left knee osteoarthritis. OTHER DIAGNOSES: Environmental allergies, hypothyroidism, hyperlipidemia, sleep apnea, gastroesophageal reflux disease, glaucoma, osteoarthritis, hypertension. DISCHARGE DIAGNOSIS: Osteoarthritis left knee status post left total knee arthroplasty. HISTORY: This is a 78-year-old female patient with progressively worsening left knee pain and stiffness who failed to improve with conservative management. She was admitted for elective knee replacement on left side. HOSPITAL COURSE: The patient was admitted on the day of surgery and underwent a left total knee arthroplasty which was uneventful. She did well in the postoperative period and hospital course was without complication. She was up with physical therapy per their protocol, weightbearing as tolerated on the left lower extremity. She will follow DVT prophylaxis per protocol. She will resume her preoperative medications and diet along with oral pain medications for pain control. She was given instructions to include but not limited to wound monitoring and activity limitations. She will use oral pain medications for pain control. She will followup in our office in 10-14 days for surgical followup. Please refer to the medical record for further detail.
== END 2019-03-07 11:55 | disposition home health service (06) | DRG 470 ==
LOC: M OR 09:30 → M MS5PR 17:50
PROVIDERS: ADMIT Orthopaedic Surgery; ATTEND Orthopaedic Surgery
PROC: 0SRD0J9 Replacement of Left Knee Joint with Synthetic Substitute, Cemented, Open Approach (ICD-10-PCS; principal; 2019-03-05 13:15)
DX: M17.12 Unilateral primary osteoarthritis, left knee (principal); E03.9 Hypothyroidism, unspecified; E78.5 Hyperlipidemia, unspecified; I10 Essential (primary) hypertension; G47.33 Obstructive sleep apnea (adult) (pediatric); K21.9 Gastro-esophageal reflux disease without esophagitis; H40.9 Unspecified glaucoma; Z90.49 Acquired absence of other specified parts of digestive tract; Z98.41 Cataract extraction status, right eye; Z91.018 Allergy to other foods; Z79.899 Other long term (current) drug therapy; Z91.09 Other allergy status, other than to drugs and biological substances

== ENCOUNTER → 2019-08-07 | Outpatient (CLI) | payer MEDICARE, OTHER ==
[~2019-08-07] MED LIST changes: -LIDOCAINE 1% MDV 20ML VIAL SQ PRN; -LR 1,000 ML IV SCH; +PERC5TAB12 PO; +XARE10TA PO; -ceFAZolin SOD 2 GM in IV 1 EA IV ONE
--- NOTE | 2019-08-08 07:24 | ECHO ---
DATE OF SERVICE: 08/07/2019 DATE OF : 1940 AGE: 78 REFERRING PROVIDER: Dr. Kristen Stock PATIENT LOCATION: Outpatient REASON FOR THE STUDY: Pulmonary embolism. 2-D MEASUREMENTS: IVS: 0.9 cm LV: 4.3 cm LVPW: 0.8 cm LA: 3.4 cm Aorta: 2.6 cm RV: 3.1 cm IVC: 1.38 cm DOPPLER MEASUREMENTS: Peak velocity across the aortic valve: 1.3 m/s Peak velocity across the LVOT: 0.96 m/s Mitral E: 0.61 Mitral A: 0.70 Ratio: 0.9 Maximum tricuspid valve velocity: 2.4 m/s 2-D COMMENTS: 1. Normal left ventricular size, wall thickness, and normal global left ventricular systolic function. The estimated left ventricular systolic ejection fraction is 60-65%. 2. Normal left atrium. The right atrium and the right ventricle appeared to be normal in size. 3. The atrial septum appeared to be normal without evidence of defect or shunt. 4. Normal aortic root. 5. No pericardial effusion seen. 6. Mildly calcified aortic valve with normal leaflet excursion. Mildly calcified mitral annulus with normal anterior mitral valve leaflet motion. Normal tricuspid valve and pulmonic valve. The proximal pulmonary artery branches were not well visualized. 7. The inferior vena cava was normal in size, central venous pressure is most likely normal. DOPPLER: It detects trace aortic regurgitation, trace mitral regurgitation, and trace tricuspid regurgitation. The calculated pulmonary artery systolic pressure varies between 30-40 mmHg. Abnormal relaxation pattern was noted across the mitral valve leaflets as well as the mitral valve annulus consistent with features of grade 1 left ventricular diastolic dysfunction. IMPRESSION: 1. Normal global left ventricular systolic function. There are some features of grade 1 left ventricular diastolic dysfunction manifested by abnormal relaxation. 2. Aortic valve sclerosis with trace aortic regurgitation, but no aortic stenosis. 3. Mitral annulus calcification with trace mitral regurgitation. 4. Trace tricuspid regurgitation with probably mild pulmonary hypertension. 5. The inferior vena cava was normal in size.
== END ==
LOC: M CARPUL 09:54
PROVIDERS: ATTEND Internal Medicine Pulmonary Disease
DX: I26.09 Other pulmonary embolism with acute cor pulmonale (principal); I08.3 Combined rheumatic disorders of mitral, aortic and tricuspid valves

== ENCOUNTER → 2020-02-29 | Outpatient (REF) | payer MEDICARE, OTHER ==
[2020-03-01 12:24] LABS: BASO % 0.3 % (0.0-1.0); EOS # 0.1 10^3/uL (0.0-0.5); EOS % 2.1 % (0.0-3.0); HEMOGLOBIN 13.3 g/dl (12.0-15.5); LYMPH # 2.7 10^3/uL (1.5-5.0); LYMPH % 39.9 % (24.0-44.0); MEAN CORPUSCULAR HEMOGLOBIN 32.6 pg (27.0-33.0); MEAN CORPUSCULAR HGB CONC 32.4 g/dl (32.0-36.5); MEAN CORPUSCULAR VOLUME 100.5 fl (80.0-96.0); MONO # 0.5 10^3/uL (0.0-0.8); NEUTROPHILS # 3.3 10^3/uL (1.5-8.5); NEUTROPHILS % 49.6 % (36.0-66.0); PLATELET COUNT, AUTOMATED 217 10^3/uL (150-450); RED BLOOD COUNT 4.08 10^6/uL (4.00-5.40); WHITE BLOOD COUNT 6.7 10^3/uL (4.0-10.0)
[2020-03-01 13:19] LABS: ALBUMIN 3.8 GM/DL (3.2-5.2); ALT/SGPT 21 U/L (12-78); BILIRUBIN,TOTAL 0.4 MG/DL (0.2-1.0); BLOOD UREA NITROGEN 18 MG/DL (7-18); CALCIUM LEVEL 9.4 MG/DL (8.8-10.2); CARBON DIOXIDE LEVEL 29 MEQ/L (21-32); CHLORIDE LEVEL 104 MEQ/L (98-107); CHOLESTEROL LEVEL 222 MG/DL (<200); CHOLESTEROL RISK RATIO 3.894 (<5); CREATININE FOR GFR 0.79 MG/DL (0.55-1.30); GLOMERULAR FILTRATION RATE > 60.0 (>39); GLUCOSE, FASTING 89 MG/DL (70-100); HDL CHOLESTEROL 57 MG/DL (>40); LDL CHOLESTEROL 137 MG/DL (<100); NON-HDL-C 165 MG/DL; POTASSIUM SERUM 5.8 MEQ/L (3.5-5.1); SODIUM LEVEL 137 MEQ/L (136-145); TRIGLYCERIDES LEVEL 138 MG/DL (<150)
== END ==
LOC: M SFHCCLAY 14:19
PROVIDERS: ATTEND Family Medicine
DX: E78.5 Hyperlipidemia, unspecified (principal); I10 Essential (primary) hypertension; R73.01 Impaired fasting glucose; Z13.29 Encounter for screening for other suspected endocrine disorder; Z13.21 Encounter for screening for nutritional disorder; Z79.899 Other long term (current) drug therapy
CPT/HCPCS: 80053; 80061; 82652; 83036; 83735; 84443; 85025; G0463

== ENCOUNTER → 2020-06-29 | Outpatient (REF) | payer MEDICARE, OTHER ==
[~2020-06-29] MED LIST changes: +ACET-838 PO; -NON-325T5 PO
[2020-06-29 17:59] LABS: BLOOD UREA NITROGEN 16 MG/DL (7-18); CALCIUM LEVEL 9.6 MG/DL (8.8-10.2); CARBON DIOXIDE LEVEL 31 MEQ/L (21-32); CHLORIDE LEVEL 102 MEQ/L (98-107); CREATININE FOR GFR 0.67 MG/DL (0.55-1.30); GLOMERULAR FILTRATION RATE > 60.0 (>39); GLUCOSE, FASTING 93 MG/DL (70-100); POTASSIUM SERUM 4.4 MEQ/L (3.5-5.1); SODIUM LEVEL 138 MEQ/L (136-145)
== END ==
LOC: M SFHCCLAY 14:08
PROVIDERS: ATTEND Family Medicine
DX: I10 Essential (primary) hypertension (principal); E03.9 Hypothyroidism, unspecified
CPT/HCPCS: 80048; 84443; G0463

== ENCOUNTER → 2020-12-20 | Outpatient (CLI) | payer MEDICARE, OTHER ==
[~2020-12-20] MED LIST changes: -ACET-838 PO; +ACET32TAB PO; +OMEP40CA4 PO; -OMEP40CA97 PO
--- NOTE | 2020-12-20 14:11 | REP ---
INDICATION: M79.672 LEFT FOOT PAIN. COMPARISON: None. TECHNIQUE: Four views FINDINGS: The bones are demineralized. Mild degenerative changes seen throughout the foot. There is no evidence of an acute fracture. IMPRESSION: Likely age-related chronic changes. <Electronically signed by Ottoniel Yusuf > 12/20/20 [id number]
== END ==
LOC: M CLY 13:30
PROVIDERS: ATTEND Physician Assistant
DX: M19.072 Primary osteoarthritis, left ankle and foot (principal); M79.672 Pain in left foot
CPT/HCPCS: 73630; G0463

== ENCOUNTER → 2021-02-19 | Outpatient (REF) | payer MEDICARE, OTHER ==
[~2021-02-19] MED LIST changes: +LOSA50TA28 PO; -LOSA50TA88 PO
[2021-02-20 11:37] LABS: BASO % 0.5 % (0.0-1.0); EOS # 0.2 10^3/uL (0.0-0.5); EOS % 2.8 % (0.0-3.0); HEMATOCRIT 42.5 % (36.0-47.0); HEMOGLOBIN 13.7 g/dl (12.0-15.5); LYMPH % 38.1 % (24.0-44.0); MEAN CORPUSCULAR HEMOGLOBIN 32.3 pg (27.0-33.0); MEAN CORPUSCULAR HGB CONC 32.2 g/dl (32.0-36.5); MEAN CORPUSCULAR VOLUME 100.2 fl (80.0-96.0); MONO # 0.6 10^3/uL (0.0-0.8); MONO % 8.1 % (2.0-8.0); NEUTROPHILS % 50.4 % (36.0-66.0); PLATELET COUNT, AUTOMATED 177 10^3/uL (150-450); RED BLOOD COUNT 4.24 10^6/uL (4.00-5.40); WHITE BLOOD COUNT 7.9 10^3/uL (4.0-10.0)
[2021-02-20 13:32] LABS: ALBUMIN 3.7 GM/DL (3.2-5.2); ALT/SGPT 23 U/L (12-78); BILIRUBIN,TOTAL 0.6 MG/DL (0.2-1.0); BLOOD UREA NITROGEN 13 MG/DL (7-18); CALCIUM LEVEL 9.9 MG/DL (8.8-10.2); CARBON DIOXIDE LEVEL 29 MEQ/L (21-32); CHLORIDE LEVEL 101 MEQ/L (98-107); CHOLESTEROL LEVEL 240 MG/DL (<200); CHOLESTEROL RISK RATIO 4.067 (<5); CREATININE FOR GFR 0.73 MG/DL (0.55-1.30); FOLATE > 24.0 NG/ML (>5.4); GLOMERULAR FILTRATION RATE > 60.0 (>32); GLUCOSE, FASTING 91 MG/DL (70-100); HDL CHOLESTEROL 59 MG/DL (>40); IRON (FE) 107 UG/DL (50-170); LDL CHOLESTEROL 157 MG/DL (<100); MAGNESIUM LEVEL 2.6 MG/DL (1.8-2.4); NON-HDL-C 181 MG/DL; POTASSIUM SERUM 5.9 MEQ/L (3.5-5.1); SODIUM LEVEL 137 MEQ/L (136-145); TOTAL PROTEIN 7.3 GM/DL (6.4-8.2); TRIGLYCERIDES LEVEL 119 MG/DL (<150); VITAMIN B12 LEVEL 464 PG/ML (247-911)
[2021-02-20 15:23] LABS: HEMOGLOBIN A1c 5.8 %
== END ==
LOC: M SFHCCLAY 14:31
PROVIDERS: ATTEND Family Medicine
DX: G62.9 Polyneuropathy, unspecified (principal); D64.9 Anemia, unspecified; E03.9 Hypothyroidism, unspecified; E78.5 Hyperlipidemia, unspecified; I10 Essential (primary) hypertension; Z79.899 Other long term (current) drug therapy
CPT/HCPCS: 80053; 80061; 82607; 82746; 83036; 83540; 83735; 84443; 85025; G0463

== ENCOUNTER → 2021-06-18 | Outpatient (REF) | payer MEDICARE, OTHER ==
[2021-06-19 11:36] LABS: BASO % 0.3 % (0.0-1.0); EOS # 0.1 10^3/uL (0.0-0.5); EOS % 1.4 % (0.0-3.0); HEMATOCRIT 42.5 % (36.0-47.0); HEMOGLOBIN 13.9 g/dl (12.0-15.5); LYMPH # 2.6 10^3/uL (1.5-5.0); LYMPH % 29.4 % (24.0-44.0); MEAN CORPUSCULAR HEMOGLOBIN 32.4 pg (27.0-33.0); MEAN CORPUSCULAR HGB CONC 32.7 g/dl (32.0-36.5); MEAN CORPUSCULAR VOLUME 99.1 fl (80.0-96.0); MONO # 0.7 10^3/uL (0.0-0.8); MONO % 8.2 % (2.0-8.0); NEUTROPHILS # 5.3 10^3/uL (1.5-8.5); NEUTROPHILS % 60.5 % (36.0-66.0); PLATELET COUNT, AUTOMATED 213 10^3/uL (150-450); RED BLOOD COUNT 4.29 10^6/uL (4.00-5.40); WHITE BLOOD COUNT 8.7 10^3/uL (4.0-10.0)
[2021-06-19 12:22] LABS: ALBUMIN 4.1 GM/DL (3.2-5.2); ALT/SGPT 30 U/L (12-78); BILIRUBIN,TOTAL 0.4 MG/DL (0.2-1.0); BLOOD UREA NITROGEN 16 MG/DL (7-18); CARBON DIOXIDE LEVEL 33 MEQ/L (21-32); CHLORIDE LEVEL 101 MEQ/L (98-107); CREATININE FOR GFR 0.78 MG/DL (0.55-1.30); FREE T4 1.09 NG/DL (0.76-1.46); GLOMERULAR FILTRATION RATE > 60.0 (>32); GLUCOSE, FASTING 98 MG/DL (70-100); IRON (FE) 53 UG/DL (50-170); POTASSIUM SERUM 5.6 MEQ/L (3.5-5.1); SODIUM LEVEL 137 MEQ/L (136-145); TOTAL PROTEIN 7.4 GM/DL (6.4-8.2)
[2021-06-19 12:47] LABS: HEMOGLOBIN A1c 6.1 %
[2021-06-19 12:55] LABS: TOTAL T3 112.8 NG/DL (60.0-181.0)
== END ==
LOC: M SFHCCLAY 14:23
PROVIDERS: ATTEND Family Medicine
DX: E03.9 Hypothyroidism, unspecified (principal); D64.9 Anemia, unspecified; R73.01 Impaired fasting glucose

== ENCOUNTER → 2021-10-30 | Outpatient (REF) | payer MEDICARE, OTHER ==
[2021-10-30 11:48] LABS: BASO % 0.4 % (0.0-1.0); EOS # 0.1 10^3/uL (0.0-0.5); EOS % 2.2 % (0.0-3.0); HEMATOCRIT 40.5 % (36.0-47.0); LYMPH # 1.8 10^3/uL (1.5-5.0); LYMPH % 34.3 % (24.0-44.0); MEAN CORPUSCULAR HEMOGLOBIN 31.9 pg (27.0-33.0); MEAN CORPUSCULAR HGB CONC 32.1 g/dl (32.0-36.5); MEAN CORPUSCULAR VOLUME 99.3 fl (80.0-96.0); MONO # 0.5 10^3/uL (0.0-0.8); NEUTROPHILS # 2.9 10^3/uL (1.5-8.5); NEUTROPHILS % 53.7 % (36.0-66.0); PLATELET COUNT, AUTOMATED 189 10^3/uL (150-450); RED BLOOD COUNT 4.08 10^6/uL (4.00-5.40); WHITE BLOOD COUNT 5.3 10^3/uL (4.0-10.0)
[2021-10-30 12:08] LABS: HEMOGLOBIN A1c 5.7 %
[2021-10-30 12:13] LABS: ALBUMIN 3.6 GM/DL (3.2-5.2); ALT/SGPT 20 U/L (12-78); BILIRUBIN,TOTAL 0.4 MG/DL (0.2-1.0); BLOOD UREA NITROGEN 17 MG/DL (7-18); CALCIUM LEVEL 8.8 MG/DL (8.8-10.2); CARBON DIOXIDE LEVEL 28 MEQ/L (21-32); CHLORIDE LEVEL 110 MEQ/L (98-107); CREATININE FOR GFR 0.74 MG/DL (0.55-1.30); GLOMERULAR FILTRATION RATE > 60.0 (>32); GLUCOSE, FASTING 95 MG/DL (70-100); POTASSIUM SERUM 4.1 MEQ/L (3.5-5.1); SODIUM LEVEL 143 MEQ/L (136-145); TOTAL PROTEIN 6.8 GM/DL (6.4-8.2)
== END ==
LOC: M SFHCCLAY 09:02
PROVIDERS: ATTEND Family Medicine
DX: R73.01 Impaired fasting glucose (principal); I10 Essential (primary) hypertension; E03.9 Hypothyroidism, unspecified; N39.41 Urge incontinence

== ENCOUNTER → 2022-02-26 | Outpatient (REF) | payer MEDICARE, OTHER ==
[2022-02-26 18:49] LABS: BASO % 0.3 % (0.0-1.0); EOS # 0.1 10^3/uL (0.0-0.5); EOS % 1.5 % (0.0-3.0); HEMATOCRIT 34.8 % (36.0-47.0); LYMPH % 28.9 % (24.0-44.0); MEAN CORPUSCULAR HEMOGLOBIN 32.3 pg (27.0-33.0); MEAN CORPUSCULAR HGB CONC 31.6 g/dl (32.0-36.5); MEAN CORPUSCULAR VOLUME 102.1 fl (80.0-96.0); MONO # 0.5 10^3/uL (0.0-0.8); NEUTROPHILS # 4.1 10^3/uL (1.5-8.5); NEUTROPHILS % 60.9 % (36.0-66.0); PLATELET COUNT, AUTOMATED 189 10^3/uL (150-450); RED BLOOD COUNT 3.41 10^6/uL (4.00-5.40); WHITE BLOOD COUNT 6.8 10^3/uL (4.0-10.0)
[2022-02-26 21:27] LABS: ALBUMIN 3.7 G/DL (3.2-5.2); ALT/SGPT 32 U/L (7.0-40); BILIRUBIN,TOTAL 0.8 MG/DL (0.3-1.2); BLOOD UREA NITROGEN 22 MG/DL (9-23); CARBON DIOXIDE LEVEL 26 MMOL/L (20-31); CHLORIDE LEVEL 105 MMOL/L (98-107); CHOLESTEROL LEVEL 168 MG/DL (<200); CHOLESTEROL RISK RATIO 3.08 (<5); CREATININE FOR GFR 0.68 MG/DL (0.55-1.30); GLOMERULAR FILTRATION RATE > 60.0 (>32); GLUCOSE, FASTING 111 MG/DL (74-106); HDL CHOLESTEROL 54.5 MG/DL (>40); LDL CHOLESTEROL 89.5 MG/DL (<100); NON-HDL-C 114 MG/DL; POTASSIUM SERUM 4.4 MMOL/L (3.5-5.1); SODIUM LEVEL 142 MMOL/L (136-145); THYROID STIMULATING HORMONE 1.903 uIU/ML (0.55-4.78); TOTAL PROTEIN 6.4 G/DL; TRIGLYCERIDES LEVEL 120 MG/DL (<150)
[2022-02-26 21:27] LABS: HEMOGLOBIN A1c 5.5 % (4.0-6.0)
== END ==
LOC: M SFHCCLAY 10:58
PROVIDERS: ATTEND Family Medicine
DX: D64.9 Anemia, unspecified (principal); R73.01 Impaired fasting glucose; E03.9 Hypothyroidism, unspecified; E78.5 Hyperlipidemia, unspecified

== ENCOUNTER → 2022-05-03 | Outpatient (CLI) | payer MEDICARE, OTHER | LOC: M PLARAD 09:35 | PROVIDERS: ATTEND Family Medicine | DX: R51.9 Headache, unspecified (principal) ==

== ENCOUNTER → 2022-10-03 | Outpatient (CLI) | payer MEDICARE, OTHER ==
[~2022-10-03] MED LIST changes: +FLUT50SP17; -FLUTISP
== END ==
LOC: M CLY 10:05
PROVIDERS: ATTEND Family Medicine
DX: M53.3 Sacrococcygeal disorders, not elsewhere classified (principal); M54.17 Radiculopathy, lumbosacral region

== ENCOUNTER → 2022-10-11 | Outpatient (CLI) | payer MEDICARE, OTHER | LOC: M PLAIMG 14:48 | PROVIDERS: ATTEND Family Medicine | DX: S32.020S Wedge compression fracture of second lumbar vertebra, sequela (principal); M53.3 Sacrococcygeal disorders, not elsewhere classified ==

== ENCOUNTER → 2022-11-12 | Outpatient (REF) | payer MEDICARE, OTHER ==
[2022-11-12 18:35] LABS: HEMATOCRIT 42.6 % (36.0-47.0); HEMOGLOBIN 13.8 g/dl (12.0-15.5); MEAN CORPUSCULAR HEMOGLOBIN 31.7 pg (27.0-33.0); MEAN CORPUSCULAR HGB CONC 32.4 g/dl (32.0-36.5); MEAN CORPUSCULAR VOLUME 97.9 fl (80.0-96.0); PLATELET COUNT, AUTOMATED 298 10^3/uL (150-450); RED BLOOD COUNT 4.35 10^6/uL (4.00-5.40); WHITE BLOOD COUNT 10.2 10^3/uL (4.0-10.0)
[2022-11-12 18:40] LABS: ALBUMIN 3.7 G/DL (3.2-5.2); ALKALINE PHOSPHATASE 120 U/L (46-116); ALT/SGPT 25 U/L (7.0-40); AST/SGOT 20 U/L (<34); BILIRUBIN,TOTAL 0.5 MG/DL (0.3-1.2); BLOOD UREA NITROGEN 16 MG/DL (9-23); CALCIUM LEVEL 9.2 MG/DL (8.3-10.6); CARBON DIOXIDE LEVEL 26 MMOL/L (20-31); CHLORIDE LEVEL 104 MMOL/L (98-107); CREATININE FOR GFR 0.66 MG/DL (0.55-1.30); GLOMERULAR FILTRATION RATE > 60.0 (>32); GLUCOSE, FASTING 128 MG/DL (74-106); POTASSIUM SERUM 4.1 MMOL/L (3.5-5.1); SODIUM LEVEL 141 MMOL/L (136-145); TOTAL PROTEIN 6.9 G/DL (5.7-8.2)
[2022-11-12 18:41] LABS: THYROID STIMULATING HORMONE 1.321 uIU/ML (0.55-4.78)
[2022-11-12 18:48] LABS: HEMOGLOBIN A1c 5.9 % (4.0-6.0)
== END ==
LOC: M SFHCCLAY 14:33
PROVIDERS: ATTEND Family Medicine
DX: I10 Essential (primary) hypertension (principal); R73.01 Impaired fasting glucose; E03.9 Hypothyroidism, unspecified

== ENCOUNTER → 2022-12-17 | Outpatient (CLI) | payer MEDICARE, OTHER | LOC: M WHC 11:01 | PROVIDERS: ATTEND Orthopaedic Surgery | DX: M47.896 Other spondylosis, lumbar region (principal); S32.010A Wedge compression fracture of first lumbar vertebra, initial encounter for closed fracture; S32.020A Wedge compression fracture of second lumbar vertebra, initial encounter for closed fracture; X58.XXXA Exposure to other specified factors, initial encounter; Y92.9 Unspecified place or not applicable ==

== ENCOUNTER → 2023-02-07 | Outpatient (CLI) | payer MEDICARE, OTHER | LOC: M SLEEP 20:00 | PROVIDERS: ATTEND Nurse Practitioner Family | DX: G47.33 Obstructive sleep apnea (adult) (pediatric) (principal) ==

== ENCOUNTER → 2023-07-18 | Outpatient (REF) | payer MEDICARE, OTHER ==
[~2023-07-18] MED LIST changes: -FLUT50SP17; +FLUTISP; +OPTI0.5D2 OU; -OPTI0.5D5 OU
[2023-07-18 17:59] LABS: HEMATOCRIT 40.5 % (36.0-47.0); HEMOGLOBIN 13.1 g/dl (12.0-15.5); MEAN CORPUSCULAR HEMOGLOBIN 32.4 pg (27.0-33.0); MEAN CORPUSCULAR HGB CONC 32.3 g/dl (32.0-36.5); MEAN CORPUSCULAR VOLUME 100.2 fl (80.0-96.0); PLATELET COUNT, AUTOMATED 228 10^3/uL (150-450); RED BLOOD COUNT 4.04 10^6/uL (4.00-5.40); WHITE BLOOD COUNT 5.8 10^3/uL (4.0-10.0)
[2023-07-18 18:32] LABS: ALBUMIN 3.5 G/DL (3.2-5.2); ALKALINE PHOSPHATASE 100 U/L (46-116); ALT/SGPT 16 U/L (7.0-40); AST/SGOT 20 U/L (<34); BILIRUBIN,TOTAL 0.4 MG/DL (0.3-1.2); BLOOD UREA NITROGEN 18 MG/DL (9-23); CALCIUM LEVEL 9.4 MG/DL (8.3-10.6); CARBON DIOXIDE LEVEL 29 MMOL/L (20-31); CHLORIDE LEVEL 104 MMOL/L (98-107); CHOLESTEROL LEVEL 177 MG/DL (<200); GLOMERULAR FILTRATION RATE > 60.0 (>32); GLUCOSE, FASTING 108 MG/DL (74-106); HDL CHOLESTEROL 63.1 MG/DL (>40); IRON (FE) 70 UG/DL (50-170); LDL CHOLESTEROL 98.3 MG/DL (<100); NON-HDL-C 113.9 MG/DL; POTASSIUM SERUM 4.5 MMOL/L (3.5-5.1); SODIUM LEVEL 137 MMOL/L (136-145); THYROID STIMULATING HORMONE 1.812 uIU/ML (0.55-4.78); TOTAL PROTEIN 6.6 G/DL (5.7-8.2); TRIGLYCERIDES LEVEL 78 MG/DL (<150)
== END ==
LOC: M SFHCCLAY 10:51
PROVIDERS: ATTEND Family Medicine
DX: E03.9 Hypothyroidism, unspecified (principal); D64.9 Anemia, unspecified; E78.5 Hyperlipidemia, unspecified

== ENCOUNTER → 2023-08-18 | Outpatient (CLI) | payer MEDICARE, OTHER | LOC: M CARPUL 09:53 | PROVIDERS: ATTEND Family Medicine | DX: R06.02 Shortness of breath (principal) ==

== ENCOUNTER → 2023-12-05 | Outpatient (REF) | payer MEDICARE, OTHER ==
[~2023-12-05] MED LIST changes: -AZEL0.055; +AZEL1SPR4
[2023-12-05 19:37] LABS: FREE T4 1.12 NG/DL (0.89-1.76); THYROID STIMULATING HORMONE 2.006 uIU/ML (0.55-4.78)
[2023-12-05 21:34] LABS: TOTAL T3 88.1 NG/DL (60.0-181.0)
== END ==
LOC: M SFHCCLAY 14:41
PROVIDERS: ATTEND Family Medicine
DX: E03.9 Hypothyroidism, unspecified (principal)

== ENCOUNTER → 2024-03-23 | Outpatient (REF) | payer MEDICARE, OTHER ==
[2024-03-23 19:13] LABS: BASO % 0.3 % (0.0-1.0); EOS # 0.1 10^3/uL (0.0-0.5); EOS % 1.8 % (0.0-3.0); HEMATOCRIT 43.7 % (36.0-47.0); HEMOGLOBIN 14.3 g/dl (12.0-15.5); LYMPH # 2.7 10^3/uL (1.5-5.0); LYMPH % 35.9 % (24.0-44.0); MEAN CORPUSCULAR HEMOGLOBIN 32.4 pg (27.0-33.0); MEAN CORPUSCULAR HGB CONC 32.7 g/dl (32.0-36.5); MEAN CORPUSCULAR VOLUME 99.1 fl (80.0-96.0); MONO # 0.6 10^3/uL (0.0-0.8); MONO % 8.1 % (2.0-8.0); NEUTROPHILS % 53.5 % (36.0-66.0); PLATELET COUNT, AUTOMATED 222 10^3/uL (150-450); RED BLOOD COUNT 4.41 10^6/uL (4.00-5.40); WHITE BLOOD COUNT 7.4 10^3/uL (4.0-10.0)
[2024-03-23 19:19] LABS: IRON (FE) 93 UG/DL (50-170)
[2024-03-23 19:20] LABS: ALBUMIN 3.7 G/DL (3.2-5.2); ALKALINE PHOSPHATASE 93 U/L (35-104); ALT/SGPT 22 U/L (7.0-40); AST/SGOT 21 U/L (<34); BILIRUBIN,TOTAL 0.5 MG/DL (0.3-1.2); BLOOD UREA NITROGEN 18 MG/DL (9-23); CALCIUM LEVEL 9.8 MG/DL (8.3-10.6); CARBON DIOXIDE LEVEL 27 MMOL/L (20-31); CHLORIDE LEVEL 103 MMOL/L (98-107); CHOLESTEROL LEVEL 211 MG/DL (<200); CHOLESTEROL RISK RATIO 3.22 (<5); CREATININE FOR GFR 0.62 MG/DL (0.55-1.30); FREE T4 1.13 NG/DL (0.89-1.76); GLOMERULAR FILTRATION RATE > 60.0 (>32); GLUCOSE, FASTING 104 MG/DL (74-106); HDL CHOLESTEROL 65.5 MG/DL (>40); LDL CHOLESTEROL 118.3 MG/DL (<100); NON-HDL-C 145.5 MG/DL; POTASSIUM SERUM 4.2 MMOL/L (3.5-5.1); SODIUM LEVEL 139 MMOL/L (136-145); THYROID STIMULATING HORMONE 2.539 uIU/ML (0.55-4.78); TRIGLYCERIDES LEVEL 136 MG/DL (<150)
[2024-03-23 20:22] LABS: HEMOGLOBIN A1c 5.7 % (4.0-6.0)
== END ==
LOC: M SFHCCLAY 14:00
PROVIDERS: ATTEND Family Medicine
DX: I10 Essential (primary) hypertension (principal); E78.5 Hyperlipidemia, unspecified; R73.01 Impaired fasting glucose; E03.9 Hypothyroidism, unspecified; D64.9 Anemia, unspecified

== ENCOUNTER → 2024-06-24 | Outpatient (REF) | payer MEDICARE, OTHER ==
[2024-06-24 18:59] LABS: ALBUMIN 3.5 G/DL (3.2-5.2); ALKALINE PHOSPHATASE 85 U/L (35-104); ALT/SGPT 22 U/L (7.0-40); AST/SGOT 20 U/L (<34); BILIRUBIN,TOTAL 0.5 MG/DL (0.3-1.2); BLOOD UREA NITROGEN 15 MG/DL (9-23); CALCIUM LEVEL 9.2 MG/DL (8.3-10.6); CARBON DIOXIDE LEVEL 28 MMOL/L (20-31); CHLORIDE LEVEL 106 MMOL/L (98-107); CREATININE FOR GFR 0.62 MG/DL (0.55-1.30); GLOMERULAR FILTRATION RATE > 60.0 (>32); GLUCOSE, FASTING 105 MG/DL (74-106); POTASSIUM SERUM 4.2 MMOL/L (3.5-5.1); SODIUM LEVEL 142 MMOL/L (136-145); TOTAL PROTEIN 6.8 G/DL (5.7-8.2)
[2024-06-24 19:00] LABS: THYROID STIMULATING HORMONE 1.404 uIU/ML (0.55-4.78)
[2024-06-24 19:01] LABS: FOLATE > 24.00 NG/ML (>5.4); VITAMIN B12 LEVEL 478 PG/ML (211-911)
== END ==
LOC: M SFHCCLAY 11:35
PROVIDERS: ATTEND Family Medicine
DX: D64.9 Anemia, unspecified (principal); G62.9 Polyneuropathy, unspecified; S32.020D Wedge compression fracture of second lumbar vertebra, subsequent encounter for fracture with routine healing

== ENCOUNTER → 2024-06-25 | Outpatient (CLI) | payer MEDICARE, OTHER | LOC: M CLY 13:17 | PROVIDERS: ATTEND Family Medicine | DX: S32.020A Wedge compression fracture of second lumbar vertebra, initial encounter for closed fracture (principal); R10.9 Unspecified abdominal pain; Y93.9 Activity, unspecified; Y92.9 Unspecified place or not applicable ==

== ENCOUNTER → 2024-11-25 | Outpatient (REF) | payer MEDICARE, BC, OTHER ==
[~2024-11-25] MED LIST changes: -PHEN-239 PO; +PHEN37.511 PO; -PRAV40TA2 PO; +PRAV40TA85 PO
[2024-11-25 19:02] LABS: BASO # 0.0 10^3/uL (0.0-0.2); BASO % 0.3 % (0.0-1.0); EOS # 0.1 10^3/uL (0.0-0.5); EOS % 0.9 % (0.0-3.0); LYMPH # 3.2 10^3/uL (1.5-5.0); LYMPH % 41.7 % (24.0-44.0); MONO # 0.6 10^3/uL (0.0-0.8); MONO % 8.4 % (2.0-8.0); NEUTROPHILS # 3.7 10^3/uL (1.5-8.5); NEUTROPHILS % 48.4 % (36.0-66.0); PLATELET COUNT, AUTOMATED 180 10^3/uL (150-450)
[2024-11-25 19:11] LABS: ESTIMATED AVERAGE GLUCOSE 114.0 MG/DL (60-110)
[2024-11-25 19:14] LABS: ALT/SGPT 17.0 U/L (7.0-40); AST/SGOT 22.0 U/L (<34); CALCIUM LEVEL 9.3 MG/DL (8.3-10.6); CARBON DIOXIDE LEVEL 27.0 MMOL/L (20-31); CHLORIDE LEVEL 103.0 MMOL/L (98-107); CREATININE FOR GFR 0.74 MG/DL (0.55-1.30); GLOMERULAR FILTRATION RATE 79.7 (>32); POTASSIUM SERUM 4.0 MMOL/L (3.5-5.1); SODIUM LEVEL 141.0 MMOL/L (136-145)
== END ==
LOC: M SFHCCLAY 11:31
PROVIDERS: ATTEND Family Medicine
DX: I10 Essential (primary) hypertension (principal); R73.01 Impaired fasting glucose

== ENCOUNTER → 2025-03-15 | Outpatient (REF) | payer MEDICARE, BC, OTHER ==
[2025-03-15 18:44] LABS: PLATELET COUNT, AUTOMATED 212 10^3/uL (150-450)
[2025-03-15 19:10] LABS: ALT/SGPT 17.0 U/L (7.0-40); AST/SGOT 23.0 U/L (<34); CALCIUM LEVEL 9.2 MG/DL (8.3-10.6); CARBON DIOXIDE LEVEL 30.0 MMOL/L (20-31); CHLORIDE LEVEL 100.0 MMOL/L (98-107); CREATININE FOR GFR 0.68 MG/DL (0.55-1.30); GLOMERULAR FILTRATION RATE 85.8 (>32); IRON (FE) 59.0 UG/DL (50-170); POTASSIUM SERUM 4.1 MMOL/L (3.5-5.1); SODIUM LEVEL 139.0 MMOL/L (136-145)
== END ==
LOC: M SFHCCLAY 14:36
PROVIDERS: ATTEND Family Medicine
DX: I10 Essential (primary) hypertension (principal); D64.9 Anemia, unspecified